=== PATIENT | female | born 1995 | race Caucasian/White ===

== ENCOUNTER 2016-11-17 09:12 | Emergency (ER) | payer MEDICAID ==
[~2016-11-17] VITALS: Ht 144.8 cm; Wt 49.9 kg
[2016-11-17 09:12] VITALS: BP_SYST 98
[2016-11-17 09:28] VITALS: BP_SYST 123
== END 2016-11-17 09:27 | disposition home or self-care (01) ==
LOC: SED 09:12
DX: J06.9 Acute upper respiratory infection, unspecified (principal)
CPT/HCPCS: 99283

== ENCOUNTER 2016-11-26 15:56 | Emergency (ER) | payer MEDICAID ==
[~2016-11-26] VITALS: Ht 144.8 cm; Wt 49.9 kg
[2016-11-26 16:05] VITALS: BP 98/55; PULSE 88; RESP 18; TEMP 98.5; O2SAT 100
--- NOTE | 2016-11-26 16:08 | NUR ---
Dr. Bowman at bedside to assess pt.
--- NOTE | 2016-11-26 16:08 | NUR ---
Pt placed to ER bed 07, triaged at bedside. Pt report given to YOEL Ohara.
--- NOTE | 2016-11-26 16:10 | NUR ---
pt c/o epigastric pain, constipation for 3 or 4 days.pain 7/10.abdomen soft,non-tender.
[2016-11-26] MEDS ORDERED: MAG HYDROX/AL HYDROX/SIMETH 30 ML, BELLADONNA ALKALOIDS/PHENOBARB 10 ML, LIDOCAINE VISC... PO ONE ×3 (16:15)
[2016-11-26 16:16] LABS: BILIRUBIN,URINE NEGATIVE (NEGATIVE); BLOOD, URINE NEGATIVE (NEGATIVE); CLARITY/URINE CLEAR (CLEAR); COLOR,URINE YELLOW (YELLOW); GLUCOSE,URINE NEGATIVE (NEGATIVE); KETONES,URINE TRACE (NEGATIVE); LEUKOCYTE ESTERASE ,URINE NEGATIVE (NEGATIVE); NITRITE, URINE NEGATIVE (NEGATIVE); PROTEIN URINE NEGATIVE (NEGATIVE); UROBILINOGEN,URINE 0.2 (0.2-1.0)
[2016-11-26 16:31] LABS: BASOPHILS # (AUTO) 0.1 K/uL (0.0-0.2); BASOPHILS % (AUTO) 0.5 % (0.0-2.0); EOSINOPHILS # (AUTO) 0.1 K/uL (0.0-0.4); EOSINOPHILS % (AUTO) 1.3 % (0.0-4.0); HEMATOCRIT 35.7 % (36-48); HEMOGLOBIN 12.1 g/dL (12.0-16.0); LYMPHOCYTES # (AUTO) 2.1 K/uL (1.0-5.5); LYMPHOCYTES % (AUTO) 20.8 % (20.5-51.5); MEAN CORPUSCULAR HEMOGLOBIN 29 pg (27-31); MEAN CORPUSCULAR HGB CONC 34 % (32-36); MEAN CORPUSCULAR VOLUME 87 fL (79.0-98.0); MONOCYTES # (AUTO) 0.6 K/uL (0.0-1.0); MONOCYTES % (AUTO) 5.5 % (1.7-9.3); NEUTROPHILS # (AUTO) 7.1 K/uL (1.8-7.7); NEUTROPHILS % (AUTO) 71.9 % (40.0-70.0); PLATELET COUNT (AUTO) 269 K/uL (130-430); RED BLOOD CELL COUNT(AUTO) 4.13 MIL/uL (4.2-6.2); RED CELL DISTRIBUTION WIDTH 11.6 % (9.0-15.0)
[2016-11-26 16:34] LABS: CALCIUM 9.1 mg/dL (8.4-11.0); CREATININE 0.79 mg/dL (0.55-1.30); POTASSIUM 3.9 mmol/L (3.5-5.1)
[2016-11-26 16:38] LABS: ALBUMIN 4.1 g/dL (3.4-4.8); PROTHROMBIN TIME 10.4 SECS (9.5-12.5); TOTAL BILIRUBIN 0.3 mg/dL (0.0-1.0); TOTAL PROTEIN, SERUM 7.9 g/dL (6.4-8.3)
--- NOTE | 2016-11-26 16:44 | NUR ---
report given to andrew DIALLO
--- NOTE | 2016-11-26 16:50 | NUR ---
report given to court DIALLO
[2016-11-26 19:34] VITALS: BP 130/78; PULSE 75; RESP 20; TEMP 97.8; O2SAT 98
== END 2016-11-26 19:34 | disposition home or self-care (01) ==
LOC: SED 15:56
DX: K21.9 Gastro-esophageal reflux disease without esophagitis (principal); K59.00 Constipation, unspecified
CPT/HCPCS: 36415; 80053; 81003; 81025; 82150; 83690; 85025; 85610; 85730; 99284; J2001